=== PATIENT | male | born 1955 | race Caucasian/White ===

== ENCOUNTER 2021-07-21 08:29 | Day surgery (SDC) | payer OTHER ==
[~2021-07-21] VITALS: Ht 177.8 cm; Wt 87.0 kg
[~2021-07-21 08:29] MED LIST: ALBU8.5H8 IH; ALBU8HFA IH; AMLO10TA55 PO; ASPI-1444 PO; BENZ-70 PO; BUDE10.27 IH; BUME1TAB6 PO; CARV12.530 PO; DOCU-385 PO; ERGO400T7 PO; FAMO40TA7 PO; FERR325T27 PO; FLUT1BLS15 IH; FURO40 PO; HYDR25TA84 PO; ISOS10TA16 PO; ISOS60TA77 PO; LISI-894 PO; LUBI24CA2 PO; METO5TAB7 PO; PANT-31 PO; SACU1TAB7 PO; SIMV-260 PO; TAMS-13 PO
[2021-07-21] MEDS ORDERED: SODIUM CHLORIDE 0.9% 1,000 ML IV ONE (08:30)
[2021-07-21] MEDS ORDERED: SODIUM CHLORIDE 0.9% 1,000 ML ONE (08:45)
[2021-07-21 09:04] LABS: CALCIUM, TOTAL 8.6 mg/dL (8.8-10.5); CREATININE 5.74 mg/dL (0.60-1.30); POTASSIUM 4.6 mmol/L (3.5-5.1)
[2021-07-21 09:09] LABS: ALBUMIN 3.6 g/dL (3.4-5.0); BILIRUBIN,TOTAL 0.6 mg/dL (0.1-1.0)
[2021-07-21] MEDS ORDERED: DiphenhydrAMINE HCL 50 MG CAPSULE ONE (09:38)
[2021-07-21] MEDS ORDERED: DIAZEPAM 5 MG TABLET ONE (09:39)
[2021-07-21] MEDS ORDERED: ASPIRIN 81 MG CHEWABLE TABLET ONE (09:39)
[2021-07-21] MEDS ORDERED: ASPIRIN 81 MG CHEWABLE TABLET PO ONE (10:30)
[2021-07-21] MEDS ORDERED: DIAZEPAM 5 MG TABLET PO ONE (10:30)
[2021-07-21] MEDS ORDERED: DiphenhydrAMINE HCL 50 MG CAPSULE PO ONE (10:30)
[2021-07-21] MEDS ORDERED: FentaNYL CITRATE PF 100 MCG/2 ML VIAL ONE (13:52)
[2021-07-21] MEDS ORDERED: MIDAZOLAM HCL 2 MG/2 ML VIAL ONE (13:52)
[2021-07-21] MEDS ORDERED: IOHEXOL 300 MG/ML 50 ML VIAL ONE (13:53)
[2021-07-21] MEDS ORDERED: IOHEXOL 300 MG/ML 150 ML VIAL ONE (13:53)
[2021-07-21] MEDS ORDERED: SODIUM BICARBONATE 50 MEQ/50 ML VIAL ONE (13:53)
[2021-07-21] MEDS ORDERED: HEPARIN SODIUM 1000 UNITS/NS 1,000 ML ONE (13:53)
[2021-07-21] MEDS ORDERED: LIDOCAINE/PF 1% 30 ML VIAL ONE (13:53)
[2021-07-21] MEDS ORDERED: IOHEXOL 300 MG/ML 100 ML VIAL ONE (13:53)
[2021-07-21] MEDS ORDERED: EPOE10003 SQ (14:01)
[2021-07-21] MEDS ORDERED: CALC0.253 PO (14:01)
[2021-07-21] MEDS ORDERED: FERR210T PO (14:01)
[2021-07-21] MEDS ORDERED: CHOL25TA4 PO (14:01)
[2021-07-21] MEDS ORDERED: SIMV-46 PO (14:01)
[2021-07-21] MEDS ORDERED: IOHEXOL 300 MG/ML 150 ML VIAL ICOR ONE (14:15)
[2021-07-21] MEDS ORDERED: HEPARIN SODIUM 2,000 UNITS in HEPARIN SODIUM 1000 UNITS/NS 1,000 ML IARTER ONE (14:15)
[2021-07-21] MEDS ORDERED: LIDOCAINE 1% 30 ML/SOD BICARB 8.4% 4 ML SQ ONE (14:15)
[2021-07-21] MEDS ORDERED: FentaNYL CITRATE PF 100 MCG/2 ML VIAL IVP ONE (14:30)
[2021-07-21] MEDS ORDERED: MIDAZOLAM HCL 2 MG/2 ML VIAL IVP ONE (14:30)
== END 2021-07-21 19:35 | disposition home or self-care (01) ==
LOC: CATHLAB 08:29
PROVIDERS: ATTEND Internal Medicine Interventional Cardiology
DX: R94.39 Abnormal result of other cardiovascular function study (principal); F17.210 Nicotine dependence, cigarettes, uncomplicated; N18.6 End stage renal disease; I12.9 Hypertensive chronic kidney disease with stage 1 through stage 4 chronic kidney disease, or unspecified chronic kidney disease; N18.9 Chronic kidney disease, unspecified; I42.9 Cardiomyopathy, unspecified; E78.00 Pure hypercholesterolemia, unspecified; M19.90 Unspecified osteoarthritis, unspecified site; Z98.890 Other specified postprocedural states; Z79.899 Other long term (current) drug therapy
CPT/HCPCS: 36415; 80053; 93005; 93458; 99152; C1760; J1644; J2250; J3010; J3490 ×2; J7030; Q9967